=== PATIENT | female | born 1995 | race Hispanic/Latino ===

== ENCOUNTER 2017-07-11 18:39 | Emergency (ER) | payer MEDICAID ==
[2017-07-11] MEDS ORDERED: ACETAMINOPHEN 325 MG TAB ONE (18:58)
[2017-07-11 19:33] LABS: RAPID GROUP A STREP NEGATIVE (NEGATIVE)
== END 2017-07-11 20:18 | disposition home or self-care (01) ==
LOC: EDH 18:39
DX: O98.513 Other viral diseases complicating pregnancy, third trimester (principal); J06.9 Acute upper respiratory infection, unspecified; Z3A.37 37 weeks gestation of pregnancy
CPT/HCPCS: 87804; 87880

== ENCOUNTER 2017-07-20 12:38 | Observation (INO) | payer MEDICAID ==
[~2017-07-20] VITALS: Ht 149.9 cm; Wt 72.1 kg
[2017-07-20 14:50] VITALS: BP 104/60
[2017-07-20 14:57] LABS: HEMATOCRIT 34.5 % (36-48); MEAN CORPUSCULAR HEMOGLOBIN 28.1 pg (27.0-33.0); MEAN CORPUSCULAR HGB CONC 33.4 g/dL (32.0-36.0); MEAN CORPUSCULAR VOLUME 84.1 fL (79-99); PLATELET COUNT (AUTO) 408 K/uL (130-400); RED BLOOD CELL COUNT(AUTO) 4.11 MIL/uL (4.00-5.50); RED CELL DISTRIBUTION WIDTH 13.1 % (11.0-15.5); WHITE BLOOD COUNT (AUTO) 11.6 K/uL (4.8-10.8)
[2017-07-20] MEDS ORDERED: LACTATED RINGERS 1000ML 1,000 ML IV SCH (15:00)
[2017-07-20 20:38] LABS: APPEARANCE,URINE Clear (CLEAR); BILIRUBIN,URINE Negative (NEGATIVE); COLOR,URINE Yellow (YELLOW); GLUCOSE, URINE (UA) Negative (NEGATIVE); KETONES,URINE Negative (NEGATIVE); LEUKOCYTE ESTERASE ,URINE Moderate (NEGATIVE); NITRATE,URINE Negative (NEGATIVE); OCCULT BLOOD,URINE Negative (NEGATIVE); PROTEIN,URINE Negative (NEGATIVE)
[2017-07-20 20:51] LABS: BACTERIA,URINE Few /HPF (None Seen); RBC,URINE None Seen /HPF (0-1)
[2017-07-22 08:18] LABS: HEPATITIS Bs ANTIGEN SCREEN P Negative (Negative)
== END 2017-07-21 11:29 | disposition home or self-care (01) ==
LOC: EDH 12:38 → LDH 12:49
PROVIDERS: ADMIT Obstetrics & Gynecology; ATTEND Obstetrics & Gynecology
DX: O46.93 Antepartum hemorrhage, unspecified, third trimester (principal); Z3A.38 38 weeks gestation of pregnancy
CPT/HCPCS: 36415; 76805; 76815; 81001; 82120; 85027; 86592; 86850; 86900; 86901; 87340; 96360; 96361 ×2; 99285; G0378 ×23; J7120

== ENCOUNTER 2017-07-22 11:43 | Inpatient (IN) | payer MEDICAID ==
[~2017-07-22] VITALS: Ht 149.9 cm; Wt 72.1 kg
[2017-07-22] MEDS ORDERED: LACTATED RINGERS 1000ML 1,000 ML IV PRN (13:46)
[2017-07-22] MEDS ORDERED: LACTATED RINGERS 1000ML 1,000 ML IV ONE ×2 (13:51→20:57)
[2017-07-22] MEDS ORDERED: OXYTOCIN 10 USP UNITS/ML ONE ×2 (13:51→20:57)
[2017-07-22] MEDS ORDERED: OXYTOCIN 10 USP UNITS/ML 20 UNIT in LACTATED RINGERS 1000ML 1,000 ML IV SCH (14:00)
[2017-07-22] MEDS ORDERED: PROMETHAZINE HCL 25 MG/ML 1ML AMPULE IM SCH (14:00)
[2017-07-22] MEDS ORDERED: MEPERIDINE-PF 50 MG/ML SYG IVP ONE (14:00)
[2017-07-22 14:37] LABS: HEMATOCRIT 33.4 % (36-48); MEAN CORPUSCULAR HEMOGLOBIN 28.5 pg (27.0-33.0); MEAN CORPUSCULAR HGB CONC 33.7 g/dL (32.0-36.0); MEAN CORPUSCULAR VOLUME 84.8 fL (79-99); PLATELET COUNT (AUTO) 408 K/uL (130-400); RED BLOOD CELL COUNT(AUTO) 3.93 MIL/uL (4.00-5.50); RED CELL DISTRIBUTION WIDTH 13.3 % (11.0-15.5); WHITE BLOOD COUNT (AUTO) 12.1 K/uL (4.8-10.8)
[2017-07-22] MEDS ORDERED: LACTATED RINGERS 500 ML 500 ML IV PRN (16:00)
[2017-07-22] MEDS ORDERED: NALOXONE HCL 0.4 MG/1 ML ML IV PRN (16:00)
[2017-07-22] MEDS ORDERED: EPHEDRINE SULFATE 50 MG/ML AMPULE IVP PRN (16:00)
[2017-07-22] MEDS ORDERED: ROPIVACAINE 0.2%200ML EPIDURAL 200 ML EP SCH (16:00)
[2017-07-22] MEDS ORDERED: LIDOCAINE HCL 1% 20 ML VIAL ONE (17:44)
[2017-07-22 19:00] VITALS: BP 119/72
[2017-07-22] MEDS: OXYTOCIN-LR 20 UNITS/1000 ML 1,000 ML IV SCH ×2 (20:02→21:14)
[2017-07-22] MEDS ORDERED: DIPH,PERTUSS(ACELL),TET VAC/PF 0.5 ML VIAL IM PRN (21:15)
[2017-07-22] MEDS ORDERED: WITCH HAZEL 1 PAD TP PRN (21:15)
[2017-07-22] MEDS ORDERED: ACETAMINOPHEN 325 MG TAB PO PRN (21:15)
[2017-07-22] MEDS ORDERED: BENZOCAINE/LANOLIN/ALOE VERA 60 ML AEROSOL TP PRN (21:15)
[2017-07-22] MEDS ORDERED: MEASLES/MUMPS/RUBELLA VACCINE, LIVE 0.5 ML/VIAL SQ PRN (21:15)
[2017-07-22] MEDS ORDERED: LANOLIN 30GM OINTMENT TP PRN (21:15)
[2017-07-22] MEDS: IBUPROFEN 600 MG TABLET PO PRN (21:50)
[2017-07-22 22:19] VITALS: BP 105/66
[2017-07-23] MEDS ORDERED: PREN-61 PO (02:15)
[2017-07-23] MEDS ORDERED: FLU VACC QS2017-18 36MOS UP/PF 60 MCG/0.5 ML ML IM ONE ×2 (02:15→04:08)
[2017-07-23 03:31] VITALS: BP 91/58
[2017-07-23] MEDS: IBUPROFEN 600 MG TABLET PO PRN (04:12)
[2017-07-23 07:34] LABS: HEMATOCRIT 28.1 % (36-48); MEAN CORPUSCULAR VOLUME 85.3 fL (79-99); PLATELET COUNT (AUTO) 358 K/uL (130-400); RED BLOOD CELL COUNT(AUTO) 3.29 MIL/uL (4.00-5.50); RED CELL DISTRIBUTION WIDTH 13.6 % (11.0-15.5); WHITE BLOOD COUNT (AUTO) 24.4 K/uL (4.8-10.8)
[2017-07-23 07:55] VITALS: BP 105/68
[2017-07-23] MEDS: DOCUSATE SODIUM 100 MG CAP PO SCH ×2 (08:56→20:10)
[2017-07-23 10:16] LABS: RAPID PLASMA REAGIN NONREACTIVE (NONREACTIVE)
[2017-07-23 11:56] VITALS: BP 110/66
[2017-07-23 15:45] VITALS: BP 106/62
[2017-07-23 19:22] VITALS: BP 97/63
[2017-07-24 04:14] LABS: HEPATITIS Bs ANTIGEN SCREEN P Negative (Negative)
== END 2017-07-23 21:25 | disposition home or self-care (01) | DRG 560 ==
LOC: EDH 11:43 → OBSVTOIN 11:44 → LDH 11:44 → WSH 22:10
PROVIDERS: ADMIT Obstetrics & Gynecology; ATTEND Obstetrics & Gynecology
PROC: 10E0XZZ Delivery of Products of Conception, External Approach (ICD-10-PCS; principal; 2017-07-23)
PROC: 0W8NXZZ Division of Female Perineum, External Approach (ICD-10-PCS; 2017-07-23)
PROC: 3E0R3BZ Introduction of Anesthetic Agent into Spinal Canal, Percutaneous Approach (ICD-10-PCS; 2017-07-23)
PROC: 00HU33Z Insertion of Infusion Device into Spinal Canal, Percutaneous Approach (ICD-10-PCS; 2017-07-23)
PROC: 3E0234Z Introduction of Serum, Toxoid and Vaccine into Muscle, Percutaneous Approach (ICD-10-PCS; 2017-07-23)
PROC: 3E0234Z Introduction of Serum, Toxoid and Vaccine into Muscle, Percutaneous Approach (ICD-10-PCS; 2017-07-23)
DX: O69.2XX0 Labor and delivery complicated by other cord entanglement, with compression, not applicable or unspecified (principal); Z23 Encounter for immunization; Z37.0 Single live birth; Z3A.39 39 weeks gestation of pregnancy
CPT/HCPCS: 36415; 85027; 86592; 86701; 86850; 86900; 86901; 87340; 87390; 90715; A4314; J2590; J7120; Q2038

== ENCOUNTER 2018-03-16 14:55 | Emergency (ER) | payer MEDICAID, OTHER ==
[~2018-03-16 14:55] MED LIST: PREN-61 PO
[2018-03-16] MEDS ORDERED: IBUPROFEN 600 MG TABLET ONE (15:19)
[2018-03-16] MEDS ORDERED: CYCLOBENZAPRINE HCL 10 MG TABLET ONE (15:19)
[2018-03-16] MEDS ORDERED: ACETAMINOPHEN-CODEINE 300/30MG TAB ONE (15:20)
== END 2018-03-16 15:37 | disposition home or self-care (01) ==
LOC: EDH 14:55
DX: M43.6 Torticollis (principal)

== ENCOUNTER 2020-01-30 17:05 | Observation (INO) | payer MEDICAID ==
[~2020-01-30] VITALS: Ht 149.9 cm; Wt 79.8 kg
== END 2020-01-30 18:25 | disposition home or self-care (01) ==
LOC: EDH 17:05 → LDH 17:25
PROVIDERS: ADMIT Specialist; ATTEND Specialist
DX: O62.9 Abnormality of forces of labor, unspecified (principal); R10.9 Unspecified abdominal pain; Z3A.35 35 weeks gestation of pregnancy
CPT/HCPCS: 99284; G0378

== ENCOUNTER 2020-02-23 06:07 | Inpatient (IN) | payer MEDICAID ==
[~2020-02-23] VITALS: Ht 149.9 cm; Wt 82.6 kg
[2020-02-23] MEDS ORDERED: LACTATED RINGERS 1000ML 1,000 ML IV PRN (06:29)
[2020-02-23] MEDS ORDERED: OXYTOCIN 10 USP UNITS/ML 20 UNIT in LACTATED RINGERS 1000ML 1,000 ML IV SCH (06:30)
[2020-02-23] MEDS ORDERED: EPHEDRINE SULFATE 50 MG/ML AMPULE IVP PRN (06:30)
[2020-02-23] MEDS ORDERED: LACTATED RINGERS 500 ML 500 ML IV PRN (06:30)
[2020-02-23] MEDS ORDERED: NALOXONE HCL 0.4 MG/1 ML ML IV PRN (06:30)
[2020-02-23] MEDS ORDERED: ROPIVACAINE 0.2% 100ML VIAL 100 ML EP PRN (07:13)
[2020-02-23] MEDS ORDERED: OXYTOCIN-LR 20 UNITS/1000 ML 1,000 ML IV SCH (07:15)
[2020-02-23 08:07] LABS: HEMATOCRIT 36.6 % (36-48); MEAN CORPUSCULAR HEMOGLOBIN 28.6 pg (27.0-33.0); MEAN CORPUSCULAR HGB CONC 33.3 g/dL (32.0-36.0); MEAN CORPUSCULAR VOLUME 85.9 fL (79-99); RED BLOOD CELL COUNT(AUTO) 4.26 MIL/uL (4.00-5.50); RED CELL DISTRIBUTION WIDTH 13.9 % (11.0-15.5); WHITE BLOOD COUNT (AUTO) 14.9 K/uL (4.8-10.8)
[2020-02-23] MEDS ORDERED: LIDOCAINE HCL 1% 20 ML VIAL ONE (10:15)
[2020-02-23] MEDS ORDERED: LANOLIN 30GM OINTMENT TP PRN (10:30)
[2020-02-23] MEDS ORDERED: DIPH,PERTUSS(ACELL),TET VAC/PF 0.5 ML VIAL IM PRN (10:30)
[2020-02-23] MEDS ORDERED: WITCH HAZEL 1 PAD TP PRN (10:30)
[2020-02-23] MEDS ORDERED: ACETAMINOPHEN 325 MG TAB PO PRN (10:30)
[2020-02-23] MEDS ORDERED: MEASLES/MUMPS/RUBELLA VACCINE, LIVE 0.5 ML/VIAL SQ PRN (10:30)
[2020-02-23] MEDS ORDERED: BENZOCAINE/LANOLIN/ALOE VERA 60 ML AEROSOL TP PRN (10:30)
[2020-02-23] MEDS ORDERED: ACETAMINOPHEN-CODEINE 300/30MG TAB PO PRN (10:30)
[2020-02-23 10:35] LABS: APPEARANCE,URINE Clear (CLEAR); BILIRUBIN,URINE Negative (NEGATIVE); COLOR,URINE Yellow (YELLOW); GLUCOSE, URINE (UA) Negative (NEGATIVE); KETONES,URINE 40 mg/dL (NEGATIVE); LEUKOCYTE ESTERASE ,URINE Negative (NEGATIVE); NITRATE,URINE Negative (NEGATIVE); OCCULT BLOOD,URINE Small (NEGATIVE); PH,URINE 5.5 (5.0-8.0); PROTEIN,URINE Negative (NEGATIVE)
[2020-02-23 10:53] LABS: BACTERIA,URINE Rare /HPF (None Seen); SQUAMOUS EPITHELIAL CELL,UR Rare /HPF (0-2); WBC,URINE 0-1 /HPF (0-1)
[2020-02-23 10:54] LABS: MUCUS,URINE Few LPF (None Seen)
[2020-02-23 11:51] VITALS: BP 114/64
[2020-02-23] MEDS: IBUPROFEN 600 MG TABLET PO PRN ×2 (12:12→19:39)
[2020-02-23 16:17] VITALS: BP 116/72
[2020-02-23 19:40] VITALS: BP 106/59
[2020-02-23] MEDS: DOCUSATE SODIUM 100 MG CAP PO SCH (20:59)
[2020-02-23 23:43] VITALS: BP 118/76
[2020-02-24] MEDS: IBUPROFEN 600 MG TABLET PO PRN ×2 (02:26→08:58)
[2020-02-24 03:50] VITALS: BP 113/70
[2020-02-24 07:27] VITALS: BP 105/55
[2020-02-24 08:13] LABS: HEPATITIS Bs ANTIGEN SCREEN P Negative (Negative)
[2020-02-24] MEDS: DOCUSATE SODIUM 100 MG CAP PO SCH (08:57)
--- NOTE | 2020-02-24 10:15 | NUR ---
pt is discharged. verbal and written discharge instructions given, pls refer to depart. informed of the follow up appointment, no prescription given. informed to call the doctor for any concerns. pt voiced understanding to all things discussed. Awaiting baby's discharge. Addendum: 02/24/20 at 1027 by SEGUN ANTON RN Amended: Links added.
--- NOTE | 2020-02-24 11:50 | NUR ---
pt is dismissed with baby in stable condition. brought to private car via wheelchair by Pamela downing Addendum: 02/24/20 at 1231 by SEGUN ANTON RN Amended: Links added.
== END 2020-02-24 11:50 | disposition home or self-care (01) | DRG 560 ==
LOC: LDH 06:07 → WSH 11:45
PROVIDERS: ADMIT Specialist; ATTEND Specialist
PROC: 10E0XZZ Delivery of Products of Conception, External Approach (ICD-10-PCS; principal; 2020-02-23)
PROC: 3E0234Z Introduction of Serum, Toxoid and Vaccine into Muscle, Percutaneous Approach (ICD-10-PCS; 2020-02-23)
PROC: 3E0134Z Introduction of Serum, Toxoid and Vaccine into Subcutaneous Tissue, Percutaneous Approach (ICD-10-PCS; 2020-02-23)
PROC: 0UQGXZZ Repair Vagina, External Approach (ICD-10-PCS; 2020-02-23)
PROC: 3E0R3BZ Introduction of Anesthetic Agent into Spinal Canal, Percutaneous Approach (ICD-10-PCS; 2020-02-23)
PROC: 00HU33Z Insertion of Infusion Device into Spinal Canal, Percutaneous Approach (ICD-10-PCS; 2020-02-23)
PROC: 0KQM0ZZ Repair Perineum Muscle, Open Approach (ICD-10-PCS; 2020-02-23)
PROC: 0UQMXZZ Repair Vulva, External Approach (ICD-10-PCS; 2020-02-23)
DX: O69.1XX0 Labor and delivery complicated by cord around neck, with compression, not applicable or unspecified (principal); Z3A.39 39 weeks gestation of pregnancy; Z37.0 Single live birth; Z23 Encounter for immunization; Z80.8 Family history of malignant neoplasm of other organs or systems; O70.1 Second degree perineal laceration during delivery; O71.82 Other specified trauma to perineum and vulva
CPT/HCPCS: 36415; 81001; 85027; 86592; 86850; 86900; 86901; 87088; 87340; 90715; A4314; G0378; J2590; J2795; J7120

== ENCOUNTER 2021-11-12 21:26 | Observation (INO) | payer MEDICAID ==
[~2021-11-12] VITALS: Ht 149.9 cm; Wt 80.3 kg
[2021-11-12 21:45] VITALS: BP 115/70
[2021-11-12 21:57] LABS: APPEARANCE,URINE CLOUDY (CLEAR); BILIRUBIN,URINE NEGATIVE (NEGATIVE); COLOR,URINE YELLOW (YELLOW); GLUCOSE, URINE (UA) NEGATIVE (NEGATIVE); KETONES,URINE 5 mg/dL (NEGATIVE); LEUKOCYTE ESTERASE ,URINE SMALL (NEGATIVE); NITRATE,URINE NEGATIVE (NEGATIVE); OCCULT BLOOD,URINE TRACE-INTACT (NEGATIVE); PROTEIN,URINE TRACE mg/dL (NEGATIVE)
[2021-11-12 22:03] LABS: BACTERIA,URINE Few /HPF (None Seen); MUCUS,URINE Few LPF (None Seen); SQUAMOUS EPITHELIAL CELL,UR Moderate /HPF (0-2)
[2021-11-12 22:07] LABS: AMPHET/METH SCREEN,URINE NEGATIVE (NEGATIVE); BARBITURATE SCREEN, URINE NEGATIVE (NEGATIVE); BENZODIAZEPINES SCREEN,URINE NEGATIVE (NEGATIVE); CANNABINOID SCREEN,URINE NEGATIVE (NEGATIVE); COCAINE SCREEN,URINE NEGATIVE (NEGATIVE); OPIATE SCREEN,URINE NEGATIVE (NEGATIVE); PHENCYCLIDINE SCREEN,URINE NEGATIVE (NEGATIVE)
[2021-11-12] MEDS ORDERED: LACTATED RINGERS 1000ML IV SCH (23:30)
[2021-11-12] MEDS ORDERED: BISMUTH SUBSALICYLATE 525 MG/15 ML ML PO SCH (23:30)
[2021-11-12] MEDS ORDERED: PHARMACY COMMUNICATION MISC SCH (23:30)
== END 2021-11-13 00:45 | disposition home or self-care (01) ==
LOC: EDH 21:26 → LDH 21:27
PROVIDERS: ADMIT Obstetrics & Gynecology; ATTEND Obstetrics & Gynecology
DX: O60.03 Preterm labor without delivery, third trimester (principal); O62.9 Abnormality of forces of labor, unspecified; O26.893 Other specified pregnancy related conditions, third trimester; R19.7 Diarrhea, unspecified; R10.10 Upper abdominal pain, unspecified; R10.13 Epigastric pain; Z3A.34 34 weeks gestation of pregnancy; Z79.899 Other long term (current) drug therapy
CPT/HCPCS: 59025; 80305; 81001; 87088; 96360; G0378 ×3; G0379; J7120

== ENCOUNTER 2021-12-15 11:39 | Emergency (ER) | payer MEDICAID ==
[~2021-12-15] VITALS: Ht 149.9 cm; Wt 80.4 kg
[2021-12-15 12:27] LABS: BASOPHILS % (AUTO) 0.1 % (0.0-5.0); EOSINOPHILS % (AUTO) 0.9 % (0.0-8.0); HEMATOCRIT 31.6 % (36-48); LYMPHOCYTES % (AUTO) 14.8 % (21.0-51.0); MEAN CORPUSCULAR HEMOGLOBIN 25.3 pg (27.0-33.0); MEAN CORPUSCULAR HGB CONC 31.3 g/dL (32.0-36.0); MEAN CORPUSCULAR VOLUME 80.8 fL (79-99); MONOCYTES % (AUTO) 3.5 % (3.0-13.0); PLATELET COUNT (AUTO) 399 K/uL (130-400); RED BLOOD CELL COUNT(AUTO) 3.91 MIL/uL (4.00-5.50)
[2021-12-15] MEDS ORDERED: CYCLOBENZAPRINE HCL 10 MG TABLET PO ONE (12:30)
[2021-12-15] MEDS ORDERED: PROMETHAZINE HCL 25 MG/ML 1ML AMPULE IM ONE (12:30)
[2021-12-15] MEDS ORDERED: KETOROLAC 30MG VIAL (30MG/ML) IVP ONE (12:30)
[2021-12-15] MEDS ORDERED: 0.9% NACL 500ML IV.SOLN 500 ML IV SCH (12:30)
[2021-12-15 12:51] LABS: ALBUMIN 2.5 g/dL (3.5-5.0); BILIRUBIN,TOTAL 0.2 mg/dL (0.2-1.0); CREATININE 0.6 mg/dL (0.5-1.5); POTASSIUM 3.6 mmol/L (3.5-5.1); TOTAL PROTEIN, SERUM 6.7 g/dL (6.0-8.3)
[2021-12-15 13:49] LABS: APPEARANCE,URINE Turbid (CLEAR); BILIRUBIN,URINE Negative (NEGATIVE); COLOR,URINE Red (YELLOW); GLUCOSE, URINE (UA) Negative (NEGATIVE); KETONES,URINE Negative (NEGATIVE); LEUKOCYTE ESTERASE ,URINE Large (NEGATIVE); NITRATE,URINE Negative (NEGATIVE); OCCULT BLOOD,URINE Large (NEGATIVE); PROTEIN,URINE POS 2+ mg/dL (NEGATIVE)
[2021-12-15] MEDS ORDERED: CEPH500B PO (14:18)
[2021-12-15] MEDS ORDERED: ACET-2247 PO (14:18)
[2021-12-15 14:20] LABS: BACTERIA,URINE Few /HPF (None Seen); RBC,URINE >100 /HPF (0-1)
[2021-12-15] MEDS ORDERED: CEFTRIAXONE 1G VIAL IVP ONE (14:30)
[2021-12-15 15:15] VITALS: BP 128/73
== END 2021-12-15 15:14 | disposition home or self-care (01) ==
LOC: EDH 11:39
DX: T88.59XA Other complications of anesthesia, initial encounter (principal); G44.40 Drug-induced headache, not elsewhere classified, not intractable; N39.0 Urinary tract infection, site not specified; Z79.899 Other long term (current) drug therapy
CPT/HCPCS: 36415; 80053; 81001; 85025; 96361; 96372; 96374; 96375; 99284; J0696; J1885; J2550; J7040